=== PATIENT | female | born 1995 | race Caucasian/White ===

== ENCOUNTER 2020-03-07 11:28 | Emergency (ER) | payer MEDICAID, SELFPAY ==
[~2020-03-07] VITALS: Ht 167.6 cm; Wt 89.8 kg
[2020-03-07 11:33] VITALS: Ht 167.6 cm; Wt 89.8 kg
[2020-03-07 13:13] VITALS: BP 139/94
== END 2020-03-07 13:13 | disposition home or self-care (01) ==
LOC: ED 11:28
DX: J02.9 Acute pharyngitis, unspecified (principal); R09.81 Nasal congestion; R05 Cough; R68.83 Chills (without fever); R11.2 Nausea with vomiting, unspecified; Z20.828 Contact with and (suspected) exposure to other viral communicable diseases
CPT/HCPCS: U0003-CS

== ENCOUNTER 2020-06-09 10:04 | Emergency (ER) | payer SELFPAY ==
[~2020-06-09] VITALS: Ht 167.6 cm; Wt 87.1 kg
[2020-06-09 10:06] VITALS: BP 132/88; Ht 167.6 cm; Wt 87.1 kg
== END 2020-06-09 10:58 | disposition home or self-care (01) ==
LOC: ED 10:04
DX: J02.9 Acute pharyngitis, unspecified (principal); Z20.828 Contact with and (suspected) exposure to other viral communicable diseases
CPT/HCPCS: 87804; U0003